=== PATIENT | male | born 1950 | race Hispanic/Latino ===

== ENCOUNTER 2017-06-11 12:00 | Emergency (ER) | payer OTHER, MEDICARE ==
[2017-06-11 12:06] VITALS: BP 183/84; PULSE 74; RESP 18; TEMP 98.7; O2SAT 97
--- NOTE | 2017-06-11 12:18 | C.PDOC ---
History Of Present Illness 66 y/o M presents for home dose Xanax. Patient states he takes 2mg TID, has refill scheduled for 2 days from now but is short because as prank, children flushed his medication down toilet. He denies any active symptoms including fever, chest pain, dyspnea. Time Seen by Provider: 06/11/17 12:16 Chief Complaint (Nursing): Med Refill Past Medical History Vital Signs: Last Vital Signs Temp 98.7 F 06/11/17 12:02 Pulse 74 06/11/17 12:02 Resp 18 06/11/17 12:02 BP 183/84 H 06/11/17 12:02 Pulse Ox 97 06/11/17 12:18 - Medical History PMH: Anxiety, Osteoporosis, Pneumonia Family History: States: Unknown Family Hx - Social History Hx Alcohol Use: No Hx Substance Use: No - Immunization History Hx Tetanus Toxoid Vaccination: No Hx Influenza Vaccination: No Hx Pneumococcal Vaccination: No Review Of Systems Except As Marked, All Systems Reviewed And Found Negative. Constitutional: Negative for: Fever Cardiovascular: Negative for: Chest Pain Physical Exam - Physical Exam Additional Physical Exam Comments: Gen: NAD Head: NC/AT Eyes: PERRL ENT: MMM Neck: Supple Chest: No tenderness CV: Regular rate Lungs: CTA b/l Abd: Soft, NT Skin: No rash Back: No CVA tenderness Extremities: No swelling or deformity Neuro: Alert, no focal deficit ED Course And Treatment O2 Sat by Pulse Oximetry: 97 Disposition - Disposition Disposition: HOME/ ROUTINE Disposition Time: 12:17 Condition: STABLE Prescriptions: Alprazolam [Xanax] 2 mg PO TID #6 tablet Instructions: Medicine Refill (ED) Forms: [employer] (Lithuanian) - Clinical Impression Clinical Impression: Medication refill
== END 2017-06-11 13:00 | disposition home or self-care (01) ==
LOC: C.ER 12:00
DX: Z76.0 Encounter for issue of repeat prescription (principal)

== ENCOUNTER 2017-09-20 09:58 | Emergency (ER) | payer OTHER, MEDICARE ==
[2017-09-20 10:04] VITALS: TEMP 98.1
--- NOTE | 2017-09-20 10:13 | C.PDOC ---
History Of Present Illness 66 year old male presents to the ED requesting refill for Xanax. Patient states he ran out yesterday, his last dose was at 4pm on 09/19. Patient states he had only 3 doses yesterday (prescribed 2mg QID). Denies other associated symptoms. Patient denies associated symptoms. Patient states will see prescribing MD on . Patient was seen on 06/16 for the same. REQUESTING REFILL XANAX. RAN OUT YEST, LAST DOSE @4 PM 09/19. PS HAD ONLY 3 DOSES YEST (PRESCRIBED 2 MG QID). NO OTHER ASSOC SX. PS WILL SEE PRESCRIBING MD 09/25. SEEN 06/16 FOR SAME EXAM NAD PSYCH CALM COOPERATIVE NO ACUTE ANXIETY NEURO NO FOCAL DEF SKIN WARM DRY REMAIDNER NEG MDM PT ADVISED CANNOT RECEIVE REFILLS FROM ER FOR THIS MEDICATION. Time Seen by Provider: 09/20/17 10:07 Chief Complaint (Nursing): Med Refill History Per: Patient History/Exam Limitations: no limitations Current Symptoms Are (Timing): Still Present Additional History Per: Patient Past Medical History Reviewed: Historical Data, Nursing Documentation, Vital Signs Vital Signs: Last Vital Signs Temp 98.1 F 09/20/17 10:02 Pulse 76 09/20/17 10:31 Resp 20 09/20/17 10:31 BP 129/78 09/20/17 10:31 Pulse Ox 97 09/20/17 10:31 - Medical History PMH: Anxiety, Osteoporosis, Pneumonia Surgical History: No Surg Hx Family History: States: Unknown Family Hx - Social History Hx Alcohol Use: No Hx Substance Use: No - Immunization History Hx Tetanus Toxoid Vaccination: No Hx Influenza Vaccination: No Hx Pneumococcal Vaccination: No Review Of Systems Psych: Positive for: Other (medicine refill ) Physical Exam - Physical Exam Appears: Non-toxic, No Acute Distress Skin: Normal Color, Warm, Dry Head: Atraumatic, Normacephalic Eye(s): bilateral: Normal Inspection Oral Mucosa: Moist Neck: Supple Chest: Symmetrical, No Deformity, No Tenderness Cardiovascular: Rhythm Regular, No Murmur Respiratory: Normal Breath Sounds, No Rales, No Rhonchi, No Wheezing Extremity: Normal ROM Neurological/Psych: Oriented x3, Normal Speech, Normal Cognition, Other (calm, cooperative, no acute anxiety ) ED Course And Treatment O2 Sat by Pulse Oximetry: 99 Progress Note: Xanax PO administered. Medical Decision Making Medical Decision Making: PT ADVISED CANNOT RECEIVE REFILLS FROM ER FOR THIS MEDICATION. Disposition Counseled Patient/Family Regarding: Diagnosis, Need For Followup - Disposition Referrals: YOUR,PMD [Other] Disposition: HOME/ ROUTINE Disposition Time: 10:08 Condition: GOOD Prescriptions: Alprazolam [Xanax] 2 mg PO TID #6 tablet Instructions: Anxiety, Adult (DC) Forms: [employer] (Afghan) - Clinical Impression Clinical Impression: Medication refill, Anxiety - Scribe Statement The provider has reviewed the documentation as recorded by the Scribe (Nida Cedeño) Provider Attestation: All medical record entries made by the Scribe were at my direction and personally dictated by me. I have reviewed the chart and agree that the record accurately reflects my personal performance of the history, physical exam, medical decision making, and the department course for this patient. I have also personally directed, reviewed, and agree with the discharge instructions and disposition.
[2017-09-20 10:32] VITALS: BP 129/78; PULSE 76; RESP 20
[2017-09-20 12:10] VITALS: O2SAT 99
== END 2017-09-20 10:32 | disposition home or self-care (01) ==
LOC: C.ER 09:58
DX: F41.9 Anxiety disorder, unspecified (principal); Z76.0 Encounter for issue of repeat prescription